=== PATIENT | male | born 1995 | race Caucasian/White ===

== ENCOUNTER 2016-11-27 12:04 | Emergency (ER) | payer OTHER ==
[~2016-11-27] VITALS: Ht 193 cm; Wt 77.3 kg
[2016-11-27 14:49] VITALS: BP 118/79
== END 2016-11-27 14:49 | disposition home or self-care (01) ==
LOC: EME 12:04
PROC: 0HQ1XZZ Repair Face Skin, External Approach (ICD-10-PCS; principal; 2016-11-27)
DX: R55 Syncope and collapse (principal); S61.217A Laceration without foreign body of left little finger without damage to nail, initial encounter; W26.8XXA Contact with other sharp object(s), not elsewhere classified, initial encounter; S01.111A Laceration without foreign body of right eyelid and periocular area, initial encounter; S06.0X1A Concussion with loss of consciousness of 30 minutes or less, initial encounter; W18.00XA Striking against unspecified object with subsequent fall, initial encounter; Y99.0 Civilian activity done for income or pay
CPT/HCPCS: 99281; 99284

== ENCOUNTER 2016-12-04 13:19 | Emergency (ER) | payer OTHER ==
[~2016-12-04] VITALS: Ht 193 cm; Wt 77.7 kg
[2016-12-04 13:28] VITALS: BP 124/75
== END 2016-12-04 15:14 | disposition left against medical advice (07) ==
LOC: EME 13:19
DX: Z53.21 Procedure and treatment not carried out due to patient leaving prior to being seen by health care provider (principal)